=== PATIENT | female | born 1965 | race Caucasian/White ===

== ENCOUNTER → 2016-11-14 | Outpatient (CLI) | payer BC ==
[~2016-11-14] MED LIST: CYAN500T PO; DICL50TA3 PO; MULT-506 PO; TRAM-10 PO; VENL1CAP92 PO; tumeric PO
--- NOTE | 2016-11-14 15:34 | DIAGNOSTIC IMAGING REPORT ---
LUMBAR SPINE MRI HISTORY: LOWER BACK PAIN TECHNIQUE: Multiplanar multisequence MRI of the lumbar spine was performed without the use of contrast. COMPARISON: None. FINDINGS: For the purpose of the report the L5-S1 disc space will be located on axial image 23 of 25. There is levoscoliosis. Alignment is intact. No fractures within the lumbar spine. The conus terminates at the L1 level. Mild disc space narrowing at T12-L1 and L1-L2. There is mild disc space to L3-L4. Severe disc space narrowing at L4-L5. Lbog-se-uubkfbia facet degenerative changes within the mid to lower lumbar spine. The visualized retroperitoneal soft tissues are unremarkable. Endplate signal abnormality at L4-5 is likely degenerative. L1-L2: No significant central canal or neural foraminal narrowing. Small broad-based posterior disc bulge. L2-L3: No significant central canal or neural foraminal narrowing. L3-L4: No significant central canal or neural foraminal narrowing. Small broad-based posterior disc bulge. L4-L5: Broad-based posterior disc bulge with ligamentum and facet hypertrophy resulting in mild central canal narrowing. There is mild right and moderate left neural foraminal narrowing. L5-S1: A small left paracentral focal disc protrusion which compresses the transiting left S1 nerve root. No significant central canal narrowing. There is mild to moderate left neural foraminal narrowing. IMPRESSION: 1. Levoscoliosis. 2. Endplate signal abnormality at L4-5 is likely due to the degenerative disc disease. 3. Mild central canal narrowing and moderate left and mild right neural foraminal narrowing due to a broad-based posterior disc bulge at L4-5. 4. Small left paracentral focal disc protrusion at L5-S1 which compresses the transiting left S1 nerve root. Electronically signed by: Evans Ojeda M.D. 11/14/2016 3:32 PM Dictated Date/Time: 11/14/2016 3:25 PM
== END | disposition home or self-care (01) ==
LOC: C.MRIBC 14:39
PROVIDERS: ATTEND Orthopaedic Surgery
DX: M54.5 Low back pain (principal)

== ENCOUNTER 2025-06-25 09:32 | Observation (INO) ==
[2025-06-25] MEDS: SODIUM CHLORIDE 0.9% 1,000 ML IV ONE (10:07)
--- NOTE | 2025-06-25 10:07 | Emergency Department Note ---
ED Provider Note History of Present Illness Chief Complaint: Abdominal Pain Stated Complaint: LOWER R ABD PAIN Time Seen by Provider: 06/25/25 09:38 15-year-old female who presents the emergency department with her (who also provides history) for evaluation of right lower abdominal pain and nausea. The patient reports that her symptoms started 2 days ago with pain that seem to be focused mostly through the central abdominal region. Over the past 12 hours, she reports that the pain is now in the right lower quadrant. She denies any obvious pain radiating into the flank or back region, although she does report a history of chronic back issues that is currently being managed by the [facility]. The patient reports that she has also had some recent issues with constipation, having had long-term issues with the same. The patient reports that she has tried multiple vobm-qor-kqmnroz medications, including MiraLAX, Gas-X, Tums and Tylenol without relief. The patient reports that she is currently taking diclofenac for her chronic back issues, having taken her morning dose upon awakening. Upon further questioning, the patient reports that even movement now is worsening the discomfort. She can also worsen the pain when pushing on her right lower quadrant region. Patient has had a prior normal colonoscopies. She denies any known GI or pelvic disease. She currently rates her discomfort a 7 out of 10. Home Medications Medication Instructions Recorded Confirmed Type cholecalciferol (vitamin D3) 250 10,000 units PO DAILY 12/13/18 06/25/25 History mcg (10,000 unit) capsule lactobacillus combination no.9 4 4,000 mmu cells PO DAILY 12/13/18 06/25/25 History billion cell capsule (Adult 50 Plus Probiotic) multivitamin 1 tab PO DAILY 02/18/19 06/25/25 History sennosides 8.6 mg tablet (Senokot) 8.6 mg PO DAILY PRN Constipation 02/18/19 06/25/25 History biotin 800 mcg tablet 800 mcg PO DAILY 03/12/19 06/25/25 History glucosamine 750 wb-jlqanyivaeh-iqd 1 tab PO DAILY 03/12/19 06/25/25 History no1 644 mg-C 30 mg-kevin 1 mg tablet estradiol 10 mcg vaginal tablet 10 mcg vaginal .twice weekly 03/22/23 06/25/25 History (Yuvafem) tamsulosin 0.4 mg capsule 0.4 mg PO QAM 04/26/24 06/25/25 History zinc 50 mg capsule 50 mg PO DAILY 12/09/24 06/25/25 History omeprazole 20 mg capsule,delayed 20 mg PO DAILY PRN Acid Reflux 03/13/25 06/25/25 History release ibuprofen 800 mg tablet 800 mg PO Q8H PRN pain #90 tabs 04/21/25 06/25/25 Rx diclofenac sodium 75 mg 75 mg PO BID #60 tabs 05/26/25 06/25/25 Rx tablet,delayed release Allergies Allergy/AdvReac Type Severity Reaction Status Date / Time Penicillins Allergy Unknown rash/hives Verified 06/25/25 12:46 Sulfa (Sulfonamide Allergy Unknown rash/hives Verified 06/25/25 12:46 Antibiotics) Tetracyclines Allergy Unknown Rash/hives Verified 06/25/25 12:46 Past Med/Surg History Problem List Appendicolith Acute appendicitis (Acute) Medical History GERD (gastroesophageal reflux disease) Sacroiliitis Lumbar facet joint syndrome Cervical myofascial pain syndrome Hamstring tendonitis of left thigh Disc degeneration, lumbar Myofascial low back pain Osteoarthritis of right hip Surgical History History of uterine ablation Social History Smoking Status: Never smoker Do You Dip or Chew Tobacco: No; Hx Alcohol Use: Yes Alcohol type: wine and hard liquor Hx Substance Use: No Preferred Language: Malay Communication Ability: Effective Visual Impairment: No Limitations Hearing Ability: Normal Freight And Passenger Agent Required: No Beliefs That Will Affect Care: None marital status: Current Living Situation: Spouse current occupational status: employed 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 Other Information That Helps Us Care for You: No Feels Safe at Home: Yes Safety Concerns: Feels Safe At This Time Assistive Devices: Glasses Physical Exam Vital Signs Vital Signs - 24 hr 06/25/25 09:35 06/25/25 10:06 06/25/25 10:08 Temperature 36.6 C Temperature Source Temporal Artery Scan Pulse Rate 72 73 76 Pulse Rate [Apical] Pulse Rate [Finger] Pulse Rate from SpO2 Sensor 72 Pulse Rhythm [Apical] Respiratory Rate 20 23 Respiratory Effort / Characteristics Non-Labored Respiratory Depth Normal Respiratory Pattern Blood Pressure 132/85 133/83 Blood Pressure [Right Arm] Blood Pressure Mean 100 99 Blood Pressure Mean [Right Arm] Blood Pressure Position [Right Arm] Pulse Oximetry 98 97 Oxygen Delivery Method Room Air Oxygen Flow Rate Sepsis Recent Fever Within 48 Hours No Sepsis New/Unexplained Change in Mental Status No Sepsis Action Taken by Nursing No Action Required 06/25/25 12:53 06/25/25 13:08 06/25/25 14:17 Temperature 37.2 C 36.1 C L Temperature Source Oral Temporal Artery Scan Pulse Rate 98 H Pulse Rate [Apical] 75 Pulse Rate [Finger] 70 Pulse Rate from SpO2 Sensor Pulse Rhythm [Apical] Regular Respiratory Rate 18 20 24 Respiratory Effort / Characteristics Non-Labored Spontaneous Respiratory Depth Normal Respiratory Pattern Regular Blood Pressure 138/86 Blood Pressure [Right Arm] 141/98 H 142/82 H Blood Pressure Mean Blood Pressure Mean [Right Arm] 112 102 Blood Pressure Position [Right Arm] Lying Pulse Oximetry 98 98 100 Oxygen Delivery Method Room Air Room Air Oxymask Oxygen Flow Rate 6 Sepsis Recent Fever Within 48 Hours Sepsis New/Unexplained Change in Mental Status Sepsis Action Taken by Nursing CONSTITUTIONAL: Healthy and well nourished. Alert and oriented X 3. Patient appears in moderate discomfort. HEENT: No scleral icterus or conjunctival injection/pallor. RESPIRATORY: Clear to auscultation bilaterally with no wheezing, crackles, rhonchi or stridor. CARDIOVASCULAR: Regular rate and rhythm with no murmurs, rubs or gallops. GASTROINTESTINAL: Bowel sounds present in all quadrants. Patient has a positive McBurney's point tenderness with questionable Rovsing sign. No significant psoas/obturator sign, however does have a mildly positive heeltap. Negative CVA tenderness. No abdominal rigidity, guarding or rebound. MUSCULOSKELETAL: Full range of motion of all joints without discomfort. INTEGUMENTARY: No rash or other significant dermatologic conditions noted. HEMATOLOGIC: No ecchymosis or petechiae. PSYCHIATRIC: Positive affect. NEUROLOGIC: No focal neurologic deficits noted. Course Course Patient history and physical exam were performed. Nursing notes were reviewed. Vital signs were reviewed from triage, and were normal. The patient was not febrile, tachycardic or hypotensive. IV access was established, and labs were ordered and drawn. The patient was hydrated with a liter of normal saline, and administered IV morphine and Zofran for pain. Review of labs showed a moderate leukocytosis with a white count of over 16,000 and absolute neutrophil count of 13.73. CMP was otherwise grossly normal. Urinalysis does not show any hematuria or convincing findings of infection. CT with IV contrast of the abdomen and pelvis does show an acute appendicitis with possible small perforation with notable periappendiceal inflammation. No abscess formation was noted. Findings were discussed with the patient and . I did discuss the case with our ED pharmacist, given that the patient does have allergies to penicillin, sulfa's and tetracycline. The patient was administered IV Rocephin and Flagyl. I did discuss the case further with general surgeon on-call, who did come to the emergency department and agrees with surgical management. Please see their dictation for further treatment and final disposition. The patient was administered additional IV morphine prior to transfer of care to the surgical service. Administered Medications Discontinued Medications Bupivacaine HCl/Epinephrine Bitart (Bupivacaine/Epinephrine 0.25% 1:200,000 30 Ml Vial) Confirm Administered Dose 30 ml .ROUTE .ST-MED ONE Stop: 06/25/25 12:33 Last Admin: 06/25/25 14:05 Dose: 30 ml Documented By: KEON Sodium Chloride (Nss) 1,000 mls @ 999 mls/hr IV .Q1H1M ONE Stop: 06/25/25 11:00 Last Infusion: 06/25/25 11:08 Dose: Infused Documented By: asya Admin: 06/25/25 10:07 Dose: 999 mls/hr Documented By: KIMBER Metronidazole (Flagyl) 500 mg in 100 mls @ 100 mls/hr IV NOW STA; Protocol Stop: 06/25/25 12:59 Last Infusion: 06/25/25 16:10 Dose: Infused Documented By: Admin: 06/25/25 12:32 Dose: 100 mls/hr Documented By: asya Ceftriaxone Sodium (Rocephin) 2,000 mg in 50 mls @ 100 mls/hr IV NOW STA Stop: 06/25/25 12:29 Last Infusion: 06/25/25 16:10 Dose: Infused Documented By: Admin: 06/25/25 12:33 Dose: 100 mls/hr Documented By: asya Ioversol (Optiray 320 100ml) 93 ml IV ONCE ONE Stop: 06/25/25 11:02 Last Admin: 06/25/25 11:02 Dose: 93 ml Documented By: DELON Morphine Sulfate (Morphine Sulfate 4 Mg/Ml 1 Ml Carp\Vial) 4 mg IV NOW STA Stop: 06/25/25 10:01 Last Admin: 06/25/25 10:13 Dose: 4 mg Documented By: KIMBER Morphine Sulfate (Morphine Sulfate 2 Mg/Ml Carp) 2 mg IV NOW STA Stop: 06/25/25 12:01 Last Admin: 06/25/25 12:33 Dose: 2 mg Documented By: asya Ondansetron HCl (Ondansetron Inj 2 Mg/Ml 2 Ml Vial) 4 mg IV NOW STA Stop: 06/25/25 10:01 Last Admin: 06/25/25 10:13 Dose: 4 mg Documented By: KIMBER Medical Decision Making Medical Records Attestation: I reviewed the patient's medical records. Home Medications was personally reviewed by me Laboratory Data Attestation: I reviewed the patient's lab results. 06/25/25 10:07 06/25/25 10:07 Lab Results 06/25/25 06/25/25 Range/Units 10:07 12:42 WBC 16.11 H (4.8-10.8) K/ul RBC 4.61 (4.20-5.40) M/uL Hgb 14.5 (12.0-16.0) g/dL Hct 42.8 (37.0-47.0) % MCV 92.8 (80.0-100.0) fL MCH 31.5 (25.0-34.0) pg MCHC 33.9 (32.0-36.0) g/dL RDW Std Deviation 40.4 (36.4-46.3) fL RDW Coeff of Binu 11.9 (11.5-14.5) % Plt Count 254 (130-400) K/uL MPV 9.4 (9.4-12.4) fL Immature Gran % (Auto) 0.4 % Neut % (Auto) 85.2 % Lymph % (Auto) 6.8 % [place] % (Auto) 7.3 % Eos % (Auto) 0.1 % Baso % (Auto) 0.2 % Neut # (Auto) 13.73 H (1.40-6.50) K/uL Lymph # (Auto) 1.09 L (1.20-3.40) K/uL [place] # (Auto) 1.18 H (0.11-0.59) K/uL Eos # (Auto) 0.01 (0.00-0.50) K/uL Baso # (Auto) 0.04 (0.00-0.20) K/uL Immature Gran # (Auto) 0.06 (0.01-0.20) K/uL Sodium 137 (136-145) mmol/L Potassium 3.5 (3.5-5.1) mmol/L Chloride 98 (98-107) mmol/L Carbon Dioxide 31 (21-32) mmol/L Anion Gap 8 (3-11) BUN 14 (6-23) mg/dl Creatinine 0.56 L (0.6-1.2) mg/dl Est Cr Clr Drug Dosing 103.9 ml/min eGFR 104.42 BUN/Creatinine Ratio 25.0 H (10-20) Glucose 115 H (70-99(Fasting)) mg/dl Calcium 9.0 (8.6-10.3) mg/dl Total Bilirubin 1.0 (0.2-1.0) mg/dl AST 17 (13-39) U/L ALT 15 (7-52) U/L Alkaline Phosphatase 63 (34-104) U/L Total Protein 6.7 (6.0-8.3) gm/dl Albumin 4.3 (3.4-5.0) gm/dl Globulin 2.4 L (2.5-4.0) gm/dl Albumin/Globulin Ratio 1.8 (0.9-2) Lipase 19 (11-82) U/L Urine Color Yellow Urine Appearance Clear (Clear) Urine pH 6.0 (4.5-7.5) Ur Specific [place] > 1.045 H (1.000-1.030) Urine Protein Negative (Negative) Urine Glucose (UA) Negative (Negative) Urine Ketones 1+ H (Negative) Urine Blood Negative (Negative) Urine Nitrite Negative (Negative) Urine Bilirubin Negative (Negative) Urine Urobilinogen Negative (Negative) Ur Leukocyte Esterase Trace H (Negative) Urine WBC (Auto) 11-20 H (0-5) /hpf Urine RBC (Auto) 0-2 (0-2) /hpf U Hyaline Cast (Auto) 0-2 (0-2) /lpf U Epithel Cells (Auto) 3-5 H (0-2) /hpf Urine Bacteria (Auto) None Seen (None Seen) Urine Comment Imaging Data Attestation: I personally reviewed and interpreted this imaging study as follows: My Impression: My interpretation of the CT with IV contrast of the abdomen and pelvis shows an acute appendicitis with notable periappendiceal inflammation. No diverticulitis, bowel obstruction or abdominal free air noted, although the radiologist is concerned for possible perforation given the periappendiceal inflammation. Radiologist report was otherwise reviewed with concurrence. Radiologist's Impression: Abdomen/Pelvis CT 06/25/25 10:00 CT SCAN OF THE ABDOMEN AND PELVIS WITH IV CONTRAST CLINICAL HISTORY: Right lower quadrant pain. COMPARISON STUDY: None. TECHNIQUE: Following the IV administration of 93 cc of Optiray 320, CT scan of the abdomen and pelvis is performed from the lung bases to the proximal femora. Images are reviewed in the axial, sagittal, and coronal planes. IV contrast was administered without complication. A dose lowering technique was utilized adhering to the principles of ALARA. CT DOSE: 546.35 mGy.cm FINDINGS: Visualized lung bases are unremarkable. There is no pneumatosis, free air or portal venous gas. There is no biliary or pancreatic ductal patient. Spleen, adrenal glands, kidneys and pancreas are unremarkable. There is no evidence for a bowel obstruction. Contraceptive wires are noted. Several appendicoliths within the appendix are present. The appendix is mildly dilated, measuring 1 cm in caliber. Extensive periappendiceal inflammation is noted. There is a small amount of fluid. There is no extraluminal gas. No fluid collection is identified. There is no lymphadenopathy. Major vasculature is patent. IMPRESSION: Findings consistent with acute appendicitis. Multiple appendicoliths. Extensive periappendiceal inflammation. No extraluminal gas or abscess. However, the extensive periappendiceal inflammation suggests appendiceal perforation. ACT 112: N Electronically signed by: Ernst Crawford M.D. 06/25/2025 11:44 AM MDM Narrative See ED Course section for further details of today's visit. Patient presents for evaluation of acute right lower quadrant abdominal pain for the past 2 days, that has progressively worsening. CT imaging today does show evidence for an acute appendicitis with possible perforation. Patient also has a moderate leukocytosis as well. The patient is not hypotensive, tachycardic or febrile, therefore I do not suspect sepsis. CT imaging also does not show any other concerning etiologies such as diverticulitis, bowel obstruction or concerning abdominal free air. Urinalysis does not show evidence for infection. The case was discussed with general surgery, who will be taking the patient to the OR for surgical management. Impression Acute appendicitis Discharge Plan Visit Data Chief Complaint: Abdominal Pain Stated Complaint: LOWER R ABD PAIN ED Provider: Reddy Aragon ED Midlevel Provider: Royce Sanchez Discharge Problem: Acute appendicitis Patient Disposition: Admitted As Inpatient Condition: Good Discharge Instructions Interventions: ED Discharge Assessment Last Done: 06/25/25 12:53 ED DC CONDITION Conditon at Discharge Condition at Discharge: Good Discharge Problem: Acute appendicitis Qualifiers: Acute appendicitis type: with localized peritonitis Appendicitis gangrene presence: unspecified whether gangrene present Appendicitis perforation presence: unspecified whether perforation present Appendicitis abscess presence: without abscess Qualified Code(s): K35.30 - Acute appendicitis with localized peritonitis, without perforation or gangrene
[2025-06-25] MEDS: ONDANSETRON INJ 2 MG/ML 2 ML VIAL IV STA (10:13)
[2025-06-25] MEDS: MoRPHine SULFATE 4 MG/ML 1 ML CARP\\VIAL IV STA (10:13)
[2025-06-25 10:28] LABS: Hematocrit (blood only) 42.8 % (37.0-47.0); Hemoglobin 14.5 g/dL (12.0-16.0); Immature Granulocytes # (auto) 0.06 K/uL (0.01-0.20); Immature Granulocytes % (auto) 0.4 %; Mean Corpuscular Hemoglobin 31.5 pg (25.0-34.0); Mean Corpuscular Volume 92.8 fL (80.0-100.0); Platelet Count 254 K/uL (130-400); RDW Standard Deviation 40.4 fL (36.4-46.3); Red Blood Count 4.61 M/uL (4.20-5.40); White Blood Count 16.11 K/ul (4.8-10.8)
[2025-06-25 10:51] LABS: Alanine Aminotransferase 15.0 U/L (7-52); Albumin Globulin Ratio 1.8 (0.9-2); Albumin Level 4.3 gm/dl (3.4-5.0); Alkaline Phosphatase 63.0 U/L (34-104); Anion Gap 8.0 (3-11); Bilirubin,Total 1.0 mg/dl (0.2-1.0); Blood Urea Nitrogen 14.0 mg/dl (6-23); Calcium 9.0 mg/dl (8.6-10.3); Carbon Dioxide 31.0 mmol/L (21-32); Chloride 98.0 mmol/L (98-107); Creatinine Clr Calc Pharmacy 103.9 ml/min; Globulin 2.4 gm/dl (2.5-4.0); Glucose 115.0 mg/dl (70-99(Fasting)); Lipase 19.0 U/L (11-82); Potassium 3.5 mmol/L (3.5-5.1); Sodium 137.0 mmol/L (136-145); Total Protein 6.7 gm/dl (6.0-8.3)
[2025-06-25] MEDS: OPTIRAY 320 100ml IV ONE (11:02)
--- NOTE | 2025-06-25 11:45 | CT Scan Report ---
CT SCAN OF THE ABDOMEN AND PELVIS WITH IV CONTRAST CLINICAL HISTORY: Right lower quadrant pain. COMPARISON STUDY: None. TECHNIQUE: Following the IV administration of 93 cc of Optiray 320, CT scan of the abdomen and pelvi s is performed from the lung bases to the proximal femora. Images are reviewed in the axial, sagittal , and coronal planes. IV contrast was administered without complication. A dose lowering technique wa s utilized adhering to the principles of ALARA. CT DOSE: 546.35 mGy.cm FINDINGS: Visualized lung bases are unremarkable. There is no pneumatosis, free air or portal venous gas. There is no biliary or pancreatic ductal patient. Spleen, adrenal glands, kidneys and pancreas a re unremarkable. There is no evidence for a bowel obstruction. Contraceptive wires are noted. Several appendicoliths within the appendix are present. The appendix is mildly dilated, measuring 1 cm in ca liber. Extensive periappendiceal inflammation is noted. There is a small amount of fluid. There is no extraluminal gas. No fluid collection is identified. There is no lymphadenopathy. Major vasculature is patent. IMPRESSION: Findings consistent with acute appendicitis. Multiple appendicoliths. Extensive periappen diceal inflammation. No extraluminal gas or abscess. However, the extensive periappendiceal inflammat ion suggests appendiceal perforation. ACT 112: N Electronically signed by: Ernst Crawford M.D. 06/25/2025 11:44 AM
[2025-06-25] MEDS: metroNIDAZOLE 500 MG/100 ML BAG IV STA (12:32)
[2025-06-25] MEDS: MoRPHine SULFATE 2 MG/ML CARP IV STA (12:33)
[2025-06-25] MEDS: cefTRIAXone SODIUM 2,000 MG/50 ML BAG IV STA (12:33)
--- NOTE | 2025-06-25 12:40 | Anesthesiology Consultation ---
Date of Service June 25, 2025 Assessment & Plan Chart Review Chart Review: Acceptable Risk for Surgery and Patient NOT seen in Pre Admission Testing Consults Requested none ASA [id number] Proposed Anesthesia Anesthesia Type: General History Surgery Operation Date: 06/25/25 09:30 Proposed Procedures p Laparoscopic Appendectomy - Santo Diez MD Height/Weight Height: 5 ft 7 in Weight: 65.2 kg Allergies Allergy/AdvReac Type Severity Reaction Status Date / Time Penicillins Allergy Unknown rash/hives Verified 05/26/25 15:16 Sulfa (Sulfonamide Allergy Unknown rash/hives Verified 05/26/25 15:16 Antibiotics) Tetracyclines Allergy Unknown Rash/hives Verified 05/26/25 15:16 Medications Home Medications Medication Instructions Recorded Confirmed Last Taken cholecalciferol (vitamin D3) 250 10,000 units PO DAILY 12/13/18 05/26/25 Unknown mcg (10,000 unit) capsule lactobacillus combination no.9 4 4,000 mmu cells PO DAILY 12/13/18 05/26/25 Unknown billion cell capsule (Adult 50 Plus Probiotic) multivitamin 1 tab PO DAILY 02/18/19 05/26/25 Unknown sennosides 8.6 mg tablet (Senokot) 8.6 mg PO DAILY PRN 02/18/19 05/26/25 Unknown biotin 800 mcg tablet 800 mcg PO DAILY 03/12/19 05/26/25 Unknown glucosamine 750 ub-gchmzswftgn-nej 1 tab PO DAILY 03/12/19 05/26/25 Unknown no1 644 mg-C 30 mg-kevin 1 mg tablet estradiol 10 mcg vaginal tablet 10 mcg vaginal .twice weekly 03/22/23 05/26/25 Unknown (Yuvafem) tamsulosin 0.4 mg capsule 0.4 mg PO QAM 04/26/24 05/26/25 Unknown zinc 50 mg capsule 50 mg PO DAILY 12/09/24 05/26/25 Unknown omeprazole 20 mg capsule,delayed 20 mg PO DAILY PRN 03/13/25 05/26/25 Unknown release ibuprofen 800 mg tablet 800 mg PO Q8H PRN pain #90 tabs 04/21/25 05/26/25 Unknown diclofenac sodium 75 mg 75 mg PO BID #60 tabs 05/26/25 05/26/25 Unknown tablet,delayed release Active Medications Generic Name Dose Route Start Last Admin Trade Name Freq PRN Reason Stop Dose Admin Metronidazole 500 mg in 100 mls @ 100 mls/hr 06/25/25 12:00 06/25/25 12:32 Flagyl IV 06/25/25 12:59 100 mls/hr NOW STA Administration Protocol Past Medical History Medical History GERD (gastroesophageal reflux disease) Sacroiliitis Lumbar facet joint syndrome Cervical myofascial pain syndrome Hamstring tendonitis of left thigh Disc degeneration, lumbar Myofascial low back pain Osteoarthritis of right hip Exercise / Class Metabolic Activity II 4-5 Yardwork/Stairs/Walk up hill Past Surgical History Surgical History History of uterine ablation Past Anesthesia History No Hx of Anesthesia Complications and No Family Hx of Anesthesia Complications History of PONV No Hx of PONV and No Hx of Motion Sickness Social History Smoking Status: Never smoker Hx Alcohol Use: Yes (socially) Hx Substance Use: No Physical Exam Vital Signs Last Vital Signs Temp 36.6 C 06/25/25 09:35 Pulse 76 06/25/25 10:08 Resp 20 06/25/25 09:35 BP 132/85 06/25/25 09:35 Pulse Ox 98 06/25/25 09:35 O2 Del Method Room Air 06/25/25 09:35 Testing Laboratory Results 06/25/25 10:07 06/25/25 10:07
[2025-06-25] MEDS ORDERED: LIDOCAINE 2% 2 ML VIAL/AMP(20MG/ML) INFIL ONE (12:43)
[2025-06-25] MEDS ORDERED: ATROPINE SULFATE 0.1 MG/ML 10ML SYR IV PRN (12:43)
[2025-06-25] MEDS ORDERED: NALOXONE HCL 0.4 MG/1 ML VIAL/CARP IV PRN (12:43)
[2025-06-25] MEDS ORDERED: ONDANSETRON INJ 2 MG/ML 2 ML VIAL ONE (12:43)
[2025-06-25] MEDS ORDERED: HYDROmorphone INJ 1 MG/ML SYRINGE IV PRN (12:43)
[2025-06-25] MEDS ORDERED: FLUMAZENIL 0.1 MG/1 ML 10 ML VIAL IV PRN (12:43)
[2025-06-25] MEDS ORDERED: PROMETHAZINE HCL 6.25 MG in SODIUM CHLORIDE 0.9% 50 ML IV PRN (12:43)
[2025-06-25] MEDS ORDERED: ONDANSETRON INJ 2 MG/ML 2 ML VIAL IV PRN (12:43)
[2025-06-25] MEDS ORDERED: DEXAMETHASONE SOD INJ 4 MG/ML VIAL ONE (12:43)
[2025-06-25] MEDS ORDERED: ROCURONIUM BROMIDE 10 MG/ML 5 ML VIAL IV ONE (12:44)
[2025-06-25] MEDS ORDERED: PROPOFOL IV EMULSION 10 MG/ML 20 ML VIAL IV ONE (12:44)
[2025-06-25] MEDS ORDERED: MIDAZOLAM HCL 1 MG/ML 2ML VIAL ONE (12:50)
--- NOTE | 2025-06-25 12:51 | History & Physical Report ---
<Statement entered by Santo Diez MD - 06/25/25 12:56> Agree with above with elevated WBC, tenderness, appendicolith, and no abscess/phlegmon recommend laparoscopic appendectomy; consent signed. Date of Service June 25, 2025 Assessment & Plan (1) Acute appendicitis: (2) Appendicolith: Plan: 59 year old female with appendicitis with multiple appendicolith and significant periappendiceal inflammation concerning for possible perforation. Pain has become severe in RLQ in last two days, not improving. hemodynamically stable, abdomen soft but tenderness and guarding in RLQ. Discussed imaging findings with patient and . Recommend laparoscopic appendectomy. Discussed procedure, risks, expected recovery and restrictions and informed consent obtained. Keep npo. Start IV Rocephin and flagyl. May need drain pending intraop findings, discussed with patient. Also discussed possibility of needing 1-2 days of IV abx pending intraop findings as well. Discussed with Dr. Diez who agrees with above. History of Present Illness Chief Complaint: abdominal pain Primary Care Provider: Trisha Taylor DO Danielle is a 59 year old female who presented to ed with complaint of increasing severe abdominal pain in the last 2 days with associated nausea and vomiting and decreased urine output and anorexia. Has not had much to eat or drink in last 36 hours, few sips of water. initially thought it was her right hip causing lower abdominal/groin pain about 5 days ago but then pain become more generalized in abdomen and then localized to right lower quadrant. [place] better after episode of vomiting 2 days ago. History of chronic constipation and took miralax and ex lax without relief. No fevers or chills. No blood thinning agents. History of uterine ablation, no abdominal surgeries. No history of blood clots. States pain is about 8/10 and getting worse, movement makes pain worse. Finally able to urinate, urine looks dark. No chest pain or shortness of breath. Allergies Allergy/AdvReac Type Severity Reaction Status Date / Time Penicillins Allergy Unknown rash/hives Verified 06/25/25 12:46 Sulfa (Sulfonamide Allergy Unknown rash/hives Verified 06/25/25 12:46 Antibiotics) Tetracyclines Allergy Unknown Rash/hives Verified 06/25/25 12:46 Home Medications Medication Instructions Recorded Confirmed Type cholecalciferol (vitamin D3) 250 10,000 units PO DAILY 12/13/18 06/25/25 History mcg (10,000 unit) capsule lactobacillus combination no.9 4 4,000 mmu cells PO DAILY 12/13/18 06/25/25 History billion cell capsule (Adult 50 Plus Probiotic) multivitamin 1 tab PO DAILY 02/18/19 06/25/25 History sennosides 8.6 mg tablet (Senokot) 8.6 mg PO DAILY PRN Constipation 02/18/19 06/25/25 History biotin 800 mcg tablet 800 mcg PO DAILY 03/12/19 06/25/25 History glucosamine 750 xg-ddlhoankhce-awo 1 tab PO DAILY 03/12/19 06/25/25 History no1 644 mg-C 30 mg-kevin 1 mg tablet estradiol 10 mcg vaginal tablet 10 mcg vaginal .twice weekly 03/22/23 06/25/25 History (Yuvafem) tamsulosin 0.4 mg capsule 0.4 mg PO QAM 04/26/24 06/25/25 History zinc 50 mg capsule 50 mg PO DAILY 12/09/24 06/25/25 History omeprazole 20 mg capsule,delayed 20 mg PO DAILY PRN Acid Reflux 03/13/25 06/25/25 History release ibuprofen 800 mg tablet 800 mg PO Q8H PRN pain #90 tabs 04/21/25 06/25/25 Rx diclofenac sodium 75 mg 75 mg PO BID #60 tabs 05/26/25 06/25/25 Rx tablet,delayed release Past Med/Surg History Problem List (Updated 06/25/25 @ 12:48 by Susan De La Cruz PA-C) Appendicolith Acute appendicitis Medical History GERD (gastroesophageal reflux disease) Sacroiliitis Lumbar facet joint syndrome Cervical myofascial pain syndrome Hamstring tendonitis of left thigh Disc degeneration, lumbar Myofascial low back pain Osteoarthritis of right hip Surgical History History of uterine ablation Social History Smoking Status: Never smoker Hx Alcohol Use: Yes (socially) Hx Substance Use: No Preferred Language: Latvian Communication Ability: Effective Visual Impairment: No Limitations Hearing Ability: Normal Beliefs That Will Affect Care: None marital status: Current Living Situation: Spouse current occupational status: employed current occupation: sales for [employer] Feels Safe at Home: Yes Review of Systems Review of Systems: All systems reviewed & are unremarkable except as noted in HPI & below Physical Exam Constitutional: well developed and well nourished; no acute distress, + uncomfortable and not in distress looks uncomfortable due to abdominal pain, not diaphoretic Respiratory: normal respiratory effort, lungs clear to auscultation Cardiovascular: RRR, no murmur, no edema Gastrointestinal (Abdomen): Inspection/Auscultation: abdomen normal to inspection; abdomen not distended Percussion/Palpation: + abdomen tender (RLQ with positive Mcburney's point), + guarding (RLQ) and abdomen soft; abdomen not rigid and abdomen not firm Skin: no rashes, warm and dry Psychiatric: Orientation: alert and oriented x 3 Results & Data Results & Data Vital Signs (Past 12 Hours) Vital Signs Temp Pulse Resp BP Pulse Ox O2 Del Method 06/25/25 10:08 76 06/25/25 09:35 36.6 C 72 20 132/85 98 Room Air Laboratory Results 06/25/25 Range/Units 10:07 WBC 16.11 H (4.8-10.8) K/ul RBC 4.61 (4.20-5.40) M/uL Hgb 14.5 (12.0-16.0) g/dL Hct 42.8 (37.0-47.0) % MCV 92.8 (80.0-100.0) fL MCH 31.5 (25.0-34.0) pg MCHC 33.9 (32.0-36.0) g/dL RDW Std Deviation 40.4 (36.4-46.3) fL RDW Coeff of Binu 11.9 (11.5-14.5) % Plt Count 254 (130-400) K/uL MPV 9.4 (9.4-12.4) fL Immature Gran % (Auto) 0.4 % Neut % (Auto) 85.2 % Lymph % (Auto) 6.8 % [place] % (Auto) 7.3 % Eos % (Auto) 0.1 % Baso % (Auto) 0.2 % Neut # (Auto) 13.73 H (1.40-6.50) K/uL Lymph # (Auto) 1.09 L (1.20-3.40) K/uL [place]k # (Auto) 1.18 H (0.11-0.59) K/uL Eos # (Auto) 0.01 (0.00-0.50) K/uL Baso # (Auto) 0.04 (0.00-0.20) K/uL Immature Gran # (Auto) 0.06 (0.01-0.20) K/uL Sodium 137 (136-145) mmol/L Potassium 3.5 (3.5-5.1) mmol/L Chloride 98 (98-107) mmol/L Carbon Dioxide 31 (21-32) mmol/L Anion Gap 8 (3-11) BUN 14 (6-23) mg/dl Creatinine 0.56 L (0.6-1.2) mg/dl Est Cr Clr Drug Dosing 103.9 ml/min eGFR 104.42 BUN/Creatinine Ratio 25.0 H (10-20) Glucose 115 H (70-99(Fasting)) mg/dl Calcium 9.0 (8.6-10.3) mg/dl Total Bilirubin 1.0 (0.2-1.0) mg/dl AST 17 (13-39) U/L ALT 15 (7-52) U/L Alkaline Phosphatase 63 (34-104) U/L Total Protein 6.7 (6.0-8.3) gm/dl Albumin 4.3 (3.4-5.0) gm/dl Globulin 2.4 L (2.5-4.0) gm/dl Albumin/Globulin Ratio 1.8 (0.9-2) Lipase 19 (11-82) U/L Diagnostic Findings CT SCAN OF THE ABDOMEN AND PELVIS WITH IV CONTRAST CLINICAL HISTORY: Right lower quadrant pain. COMPARISON STUDY: None. TECHNIQUE: Following the IV administration of 93 cc of Optiray 320, CT scan of the abdomen and pelvis is performed from the lung bases to the proximal femora. Images are reviewed in the axial, sagittal, and coronal planes. IV contrast was administered without complication. A dose lowering technique was utilized adhering to the principles of ALARA. CT DOSE: 546.35 mGy.cm FINDINGS: Visualized lung bases are unremarkable. There is no pneumatosis, free air or portal venous gas. There is no biliary or pancreatic ductal patient. Spleen, adrenal glands, kidneys and pancreas are unremarkable. There is no evidence for a bowel obstruction. Contraceptive wires are noted. Several appendicoliths within the appendix are present. The appendix is mildly dilated, measuring 1 cm in caliber. Extensive periappendiceal inflammation is noted. There is a small amount of fluid. There is no extraluminal gas. No fluid collection is identified. There is no lymphadenopathy. Major vasculature is patent. IMPRESSION: Findings consistent with acute appendicitis. Multiple appendicoliths. Extensive periappendiceal inflammation. No extraluminal gas or abscess. However, the extensive periappendiceal inflammation suggests appendiceal perforation. I Personally reviewed CT scan images and concur with above findings. Code Status & VTE Plan VTE Prophylaxis Plan VTE Prophylaxis will be ordered: Yes
[2025-06-25] MEDS ORDERED: ACETAMINOPHEN 1000 MG/100 ML IV IV ONE (12:54)
[2025-06-25 13:08] LABS: Appearance Urine Clear (Clear); Bacteria Urine Automated None Seen (None Seen); Cast Urine Automated 0-2 /lpf (0-2); Glucose Urine UA Negative (Negative); RBC Urine Automated 0-2 /hpf (0-2)
[2025-06-25] MEDS ORDERED: KETOROLAC 30 MG/ML VIAL ONE (13:47)
[2025-06-25] MEDS ORDERED: SUGAMMADEX SODIUM 200 MG/2 ML VIAL IV ONE (13:47)
[2025-06-25] MEDS: BUPIVACAINE/EPINEPHRINE 0.25% 1:200,000 30 ML VIAL ONE (14:05)
--- NOTE | 2025-06-25 14:14 | Operative Report ---
Post Operative Report Pre & Post Diagnosis Operation Date: 06/25/25 09:30 Pre-Op Diagnosis: LOWER R ABD PAIN Post-Op Diagnosis: Acute gangrenous appendicitis, no obvious perforation I identified the patient and participated in the time-out.: Yes Procedure Operation Date: 06/25/25 09:30 Actual Procedures p Laparoscopic Appendectomy(Not Applicable) - Santo Diez MD Surgeon Santo Diez MD Solar Technician Susan De La Cruz PA-C Estimated Blood Loss 12 Findings Consistent with Post-Op Diagnosis Acute gangrenous appendicitis, no obvious perforation Specimens appendix to pathology Drains none Anesthesia Type General Complications none Disposition Accompanied Patient To Recovery: No Disposition: Recovery Room Indications This is a 59-year-old female who came to the emergency department with 2 days of lower abdominal pain. The pain began periumbilically and then migrated to her right lower quadrant. CT scan showed acute appendicitis with no obvious abscess or phlegmon. We talked her in detail about these findings and recommended a laparoscopic appendectomy with her appendicolith, a white count of 16, and her exam. She understands all the risks outlined in the consent. Description of Procedure The patient was taken to the OR and underwent excellent general anesthesia. Their abdomen was prepped and draped in normal sterile fashion. A transverse supraumbilical incision was made, towel clamps were used to create tension on the abdominal wall as an 11 port was placed in the supraumbilical position, inserted with visualization gently into the peritoneal cavity. Good pneumoperitoneum was achieved to about 15 mmHg pressure. Once this was done, a visualized 12 mm left lower quadrant port , a 5mm suprapubic port , and a 5mm right upper quadrant port were all placed in normal fashion. Patient was then placed in head down and rolled to the left. A good diagnostic lap was performed. They had obvious acute gangrenous appendicitis without obvious perforation. The cecum was grasped with an atraumatic grasper. A grasper was then was then used to grasp the tip of the appendix. The mesoappendix was splayed open and a harmonic scalpel was used to take down the mesoappendix. A clip was placed on the vessel to ensure hemostasis. The base of the appendix was identified and an Endo FLORES stapler was used to transect the appendix at its base. A endobag was then inserted through the left lower quadrant port and the appendix was placed into the bag, The bag was removed through the left lower quadrant port. The appendix was sent for pathologic evaluation. The pneumoperitoneum was re-established after the 12 mm port was replaced. Saline was then used to irrigate the abdomen. There was no active bleeding nor any other abnormalities noted in the abdomen. The patient was then placed back in neutral position, the ports were removed and the pneumoperitoneum decompressed. The 12mm and 11 mm port's fascia was then closed using a 0 Vicryl. The skin was then anesthetized with 0.25% Marcaine with epinephrine local. Interrupted Vicryl is used to close the skin. Dermabond was used to reinforce the incisions. The patient tolerated procedure without complications was sent to the postop recovery period of observation. They will be sent to the floor for the rest of their care. Susan De La Cruz PA-C was present and participated in the entire procedure. She was integral in skin closure, retraction, and camera manipulation. There was no qualified resident available to assist. I attest to the content of the Intraoperative Record and any orders documented therein. Any exceptions are noted below.
--- NOTE | 2025-06-25 15:03 | Anesthesiology Progress Note ---
Date of Service June 25, 2025 Anesthesia Post Procedure Vital Signs Vital Signs: Temp Pulse Pulse Pulse Resp BP BP 06/25/25 14:45 36.9 C 77 18 144/70 H 06/25/25 14:35 76 18 148/74 H 06/25/25 14:25 74 17 149/75 H 06/25/25 14:17 36.1 C L 75 24 142/82 H 06/25/25 13:08 37.2 C 70 20 141/98 H 06/25/25 12:53 98 H 18 138/86 06/25/25 10:08 76 06/25/25 10:06 73 23 133/83 06/25/25 09:35 36.6 C 72 20 132/85 Pulse Ox O2 Del Method O2 Flow Rate 06/25/25 14:45 99 Room Air 06/25/25 14:35 99 Room Air 06/25/25 14:25 100 Oxymask 2 06/25/25 14:17 100 Oxymask 6 06/25/25 13:08 98 Room Air 06/25/25 12:53 98 Room Air 06/25/25 10:08 06/25/25 10:06 97 06/25/25 09:35 98 Room Air Pain Intensity Right Lower Abdomen: Pain Intensity: 7 Transfer of Care Handoff Completed per policy Notes Mental Status: alert / awake / arousable Patient Amnestic to Procedure: Yes Nausea / Vomiting: adequately controlled Pain: adequately controlled Airway Patency, RR, SpO2: stable & adequate BP & HR: stable & adequate Hydration State: stable & adequate Anesthetic Complications: no major complications apparent
[2025-06-25] MEDS ORDERED: IBUPROFEN 800 MG TAB PO PRN (15:28)
[2025-06-25] MEDS ORDERED: PROMETHAZINE 25 MG/51 ML BAG IV PRN (15:28)
[2025-06-25] MEDS: COUGH DROP (SUGAR FREE) LOZ 24 LOZ/1 BOX BUCCAL PRN (20:05)
[2025-06-25] MEDS: MoRPHine SULFATE 2 MG/ML CARP IV PRN (20:20)
[2025-06-25] MEDS: metroNIDAZOLE 500 MG/100 ML BAG IV SCH (20:21)
[2025-06-25] MEDS: ONDANSETRON INJ 2 MG/ML 2 ML VIAL IV PRN (23:56)
[2025-06-26] MEDS: ACETAMINOPHEN 325 MG TAB PO PRN (03:27)
[2025-06-26] MEDS: MoRPHine SULFATE 4 MG/ML 1 ML CARP\\VIAL IV PRN (03:28)
--- NOTE | 2025-06-26 09:45 | Surgery Progress Note ---
Date of Service June 26, 2025 Assessment & Plan (1) Gangrenous appendicitis: Plan: advance diet as tolerated ambulate transition pain control to oral IV abx for one more day possible discharge in AM Admission and Anticipated Discharge Date Admission Date: June 25, 2025 Subjective c/o headache pain controlled otherwise taking po OK some ambulation Review of Systems Constitutional: no fever and no chills Respiratory: no cough and no dyspnea Cardiovascular: no chest pain Gastrointestinal: + abdominal pain and + change in bowel h abits; no nausea and no vomiting Neurologic: no localized weakness Psychiatric: no behavioral changes Physical Exam Constitutional: WD/WN, vitals as above Respiratory: normal respiratory effort Cardiovascular: Rate/Rhythm: regular rate and regular rhythm Gastrointestinal (Abdomen): Inspection/Auscultation: abdomen normal to inspection; abdomen not distended Percussion/Palpation: + abdomen tender and abdomen soft Musculoskeletal: Head/Neck/Chest: normocephalic and head atraumatic Results & Data Vital Signs (Past 12 Hours) Vital Signs Temp Pulse Resp BP Pulse Ox O2 Del Method 06/26/25 08:58 36.7 C 73 116/73 97 Room Air 06/26/25 07:29 36.8 C 74 17 114/73 96 Room Air 06/26/25 06:24 36.7 C 06/26/25 03:21 37.1 C 83 18 110/69 95 Room Air 06/25/25 22:41 37.8 C H 93 H 16 131/84 95 Room Air
[2025-06-26] MEDS: cefTRIAXone SODIUM 1,000 MG/50 ML BAG IV SCH (12:06)
[2025-06-27 08:05] VITALS: BP 126/74; PULSE 74; RESP 18; TEMP 98.1; O2SAT 96
--- NOTE | 2025-06-27 09:11 | Discharge Summary ---
Date of Service June 27, 2025 Admission HPI Per Admitting Provider Danielle is a 59 year old female who presented to ed with complaint of increasing severe abdominal pain in the last 2 days with associated nausea and vomiting and decreased urine output and anorexia. Has not had much to eat or drink in last 36 hours, few sips of water. initially thought it was her right hip causing lower abdominal/groin pain about 5 days ago but then pain become more generalized in abdomen and then localized to right lower quadrant. [place] better after episode of vomiting 2 days ago. History of chronic constipation and took miralax and ex lax without relief. No fevers or chills. No blood thinning agents. History of uterine ablation, no abdominal surgeries. No history of blood clots. States pain is about 8/10 and getting worse, movement makes pain worse. Finally able to urinate, urine looks dark. No chest pain or shortness of breath. Principal Diagnosis acute gangrenous appendicitis Discharge Exam Constitutional WD/WN, vitals as above cooperative and comfortable; no acute distress and not ill appearing Respiratory normal respiratory effort, lungs clear to auscultation Cardiovascular RRR, no murmur, no edema Gastrointestinal (Abdomen) Inspection/Auscultation: abdomen normal to inspection, + abdomen distended and + abdominal surgical incision (c/d/i with dermabond) Percussion/Palpation: + abdomen tender (at incision sites, appropriate postop) and abdomen soft; no guarding, abdomen not rigid and abdomen not firm Skin no rashes, warm and dry Psychiatric Orientation: alert and oriented x 3 Discharge Data Allergies Allergy/AdvReac Type Severity Reaction Status Date / Time Penicillins Allergy Unknown rash/hives Verified 06/25/25 12:46 Sulfa (Sulfonamide Allergy Unknown rash/hives Verified 06/25/25 12:46 Antibiotics) Tetracyclines Allergy Unknown Rash/hives Verified 06/25/25 12:46 Consultations 06/25/25 12:00 ED Decision to Admit Stat Procedures Performed Operation Date: 06/25/25 09:30 Actual Procedures p Laparoscopic Appendectomy(Not Applicable) - Santo Diez MD Ordered Studies 06/25/25 10:00 CT abd pelvis IV con only Stat Hospital Course (1) Gangrenous appendicitis: Patient was taken to operating room for laparoscopic appendectomy on 06/25/2025 and found to have gangreneous appendicitis without perforation. Patient tolerated procedure without difficulty was transferred to recovery then to medical/surgical floor for postop care. IV Ceftriaxzone and flagyl were continued, diet was advanced slowly, IV morphine and PO Percocet as needed for pain. POD # 1 pain was moderate and appetite low, diet advanced to clears. POD # 2 diet advanced to fulls and tolerated. Abdominal pain better controlled. Passing gas and tolerating full liquids. Patient was discharged home on POD # 2 in stable condition. Total Time Total Time Spent Total Time Spent (In Minutes): 20 Total Time Includes: Examination of the Patient, Discharge Planning, Medication Reconciliation and Communication With Other Providers Discharge Plan Discharge Items Patient Disposition: Home - Self-Care Reason For Visit: APPENDICITIS Discharge Diagnosis: Acute gangrenous appendicitis Condition on Discharge: Good Activity: Per Instructions section Non-emergency contact: Primary Care Provider and Surgeon Call non-emergency contact if: you have any medication questions, your pain is not controlled, your pain is worsening, your pain is concerning for you, you have a fever, your temperature is above 101, your wound has increased redness, your wound has increased drainage and your wound pain has increased Follow-up/Referrals: Trisha Taylor DO [Primary Care Provider] - Susan De La Cruz PA-C [Physician Sap Portal Developer] - Diet: Regular Addtl Attending Provider Instructions: Post-Surgical ~Discharge Instructions Activity Recommendations: - lifting limitation: (20 pounds for 2 weeks), - exercise/sex/sports limit: (nonstrenuous for 2 weeks), - driving or machine use limit: (none for 1 week or until pain free and no longer taking narcotic pain medication), - Shower/bathe limit: (may shower) Diet: - Resume previous diet SPECIAL CARE INSTRUCTIONS: - May shower , no submerging incisions underwater for 2 weeks - Leave surgical glue on incisions this will fall off on its own. - Call the surgeon's office with any questions or concerns - - (ex. temperature higher than 101 degrees F, excessive bleeding or pain). MEDICATIONS: - Resume previous medications unless instructed otherwise by your surgeon. - May take extra strength Tylenol as needed for mild to moderate pain -650 mg Tylenol every 6 hours - Oxycodone 1 every 6 hours, as needed for moderate to severe pain - Recommend daily stool softener (Colace) while taking narcotic pain medication to prevent constipation or straining. Drink plenty of water daily. FOLLOW UP VISIT: - If not already scheduled, please call the office to schedule a two week follow-up appointment. Office number Pending Studies at Discharge: Yes (appendix pathology will be reviewed at postop visit) Stand-Alone Forms: My [facility], Smoking Cessation Medications and DC Order Prescriptions: New oxycodone 5 mg tablet 5 mg PO Q6H PRN (Reason: pain) Qty: 10 0RF Continued sennosides [Senokot] 8.6 mg tablet 8.6 mg PO DAILY PRN (Reason: Constipation) omeprazole 20 mg capsule,delayed release(DR/EC) 20 mg PO DAILY PRN (Reason: Acid Reflux) multivitamin tablet 1 tab PO DAILY biotin 800 mcg tablet 800 mcg PO DAILY estradiol [Yuvafem] 10 mcg tablet 10 mcg vaginal .twice weekly tamsulosin 0.4 mg capsule 0.4 mg PO QAM zinc 50 mg capsule 50 mg PO DAILY ibuprofen 800 mg tablet 800 mg PO Q8H PRN (Reason: pain) Qty: 90 0RF cholecalciferol (vitamin D3) 10,000 unit capsule 10,000 units PO DAILY Adult 50 Plus Probiotic 4 billion cell capsule 4,000 mmu cells PO DAILY [id number] 750 mg-644 mg- 30 mg-1 mg tablet 1 tab PO DAILY diclofenac sodium 75 mg tablet,delayed release (DR/EC) 75 mg PO BID Qty: 60 0RF Discharge Orders: Discharge Order (Routine); Ordered 06/27/25 Ordered By: Susan De La Cruz Admission Data Admit Date/Time: 06/25/25 14:20 Attending Provider: Santo Diez Admit Provider: Santo Diez Primary Care Provider: Trisha Taylor Other Providers: Santo Diez
== END 2025-06-27 11:03 | disposition home or self-care (01) ==
LOC: 3E 09:32 → ED 09:32 → 3E 12:53
DX: Z88.1 Allergy status to other antibiotic agents; M79.18 Myalgia, other site; Z88.2 Allergy status to sulfonamides; Z79.899 Other long term (current) drug therapy; K35.891 Other acute appendicitis without perforation, with gangrene; K21.9 Gastro-esophageal reflux disease without esophagitis; Z88.0 Allergy status to penicillin